=== PATIENT | female | born 1955 | race Caucasian/White ===

== ENCOUNTER 2021-07-16 12:35 | Outpatient (REF) | payer MEDICARE, MEDICAID, SELFPAY | END 2021-07-16 12:36 | disposition home or self-care (01) | LOC: HO.LAB 12:35 | PROVIDERS: Visit Provider Internal Medicine | DX: Z20.822 Contact with and (suspected) exposure to COVID-19 (principal) | CPT/HCPCS: C9803; U0003; U0005 ==

== ENCOUNTER 2021-12-29 09:29 | Emergency (ER) | payer MEDICARE, MEDICAID, OTHER, SELFPAY ==
[2021-12-29 09:50] VITALS: BP 172/96; PULSE 90; RESP 18; TEMP 36.4; O2SAT 98; BMI 33.2
--- NOTE | 2021-12-29 10:35 | ED.GENADULT ---
HPI - General Adult General Chief complaint: General Medical Stated complaint: medication refill Time Seen by Provider: 12/29/21 10:35 Source: patient and other (Best friend Sonja) Mode of arrival: ambulatory Limitations: no limitations History of Present Illness HPI narrative: 66-year-old female with past medical history of depression is here today seeking refill on her citalopram. Patient reports that she has been on it for over 8 years. Patient has been depressed for very long time. Patient reports that while she was on that medication she did not have any side effects. Patient reports that she has been doing well denies any suicidal ideation while taking this medication. Patient lost her mother 8 years ago, her 7 years ago when her son 4 years ago. Patient has not seen a PCP for 2 years. Tried calling her primary care provider and was unable to get in. Patient has ran out of this medication, her last dose was November 08 of this year. Patient denies any SI, HI. Patient reports that she has never seen therapist or psychiatrist in the past. Patient does not have any psychiatric disorders or was never diagnosed with any psychiatric disorders. Patient is here with her best friend Erica who is attesting that patient has not been suicidal before nor she is suicidal now. Patient is friend is reporting that since she stopped taking the medications she looks little bit more depressed and cries frequently. Patient states that she is unable to get over the loss of her son. However she does report that she has a very good support system in her best friend and some other people in community. Onset (ago): day(s) Related Data Previous Rx's Medication Instructions Recorded citalopram 10 mg tablet 10 mg PO DAILY #30 tab 12/29/21 Allergies Allergy/AdvReac Type Severity Reaction Status Date / Time No Known Allergies Allergy Unverified 07/25/20 15:18 [No Known Allergies*] Review of Systems Review of Systems: Constitutional : No Weight loss, No Fever, No Chills, No Night Sweats, No Fatigue, No Malaise ENT/Mouth : No Hearing loss, No Ear Pain, No Nasal Congestion, No Sinus Pain, No Hoarseness, No sore throat, No Rhinorrhea, No Swallowing Difficulty Eyes: No Eye Pain, No Swelling, No Redness, No Foreign Body, No Discharge, No Vision Changes Cardiovascular : No Chest Pain, No SOB, No Dyspnea on Exertion, No Orthopnea, No Edema, No Palpitations Respiratory : No Cough, No Sputum, No Wheezing, No Smoke Exposure, No Dyspnea Gastrointestinal : No Nausea, No Vomiting, No Diarrhea, No Constipation, No abdominal Pain, No Hematochezia, No Melena Genitourinary : no irregular bleeding, No Dysuria, No Urinary Frequency, No Hematuria, No Urinary Incontinence, No Urgency, No Flank Pain, No Urinary Flow Changes, No Hesitancy Musculoskeletal : No joint pain, No Myalgias, No Joint Swelling Skin : No Skin Lesions, No rash Neuro : No Weakness, No Numbness, No Paresthesias, No Loss of Consciousness, No Dizziness, No Headache Psych : No Anxiety/Panic, Depression, No SI/HI/AH/VH, No Social Issues, Yes all other systems are reviewed and are negative [facility] Past Medical History Medical History (Updated 12/30/21 @ 00:00 by Background Daemon) Depressed Physical Exam ED Vital Signs: Vital Signs - 24 hr 12/29/21 09:50 Temperature 97.6 F Pulse Rate 90 Respiratory Rate 18 Blood Pressure 172/96 H Pulse Oximetry 98 BMI result Body Mass Index 33.2 Const General: cooperative, healthy appearing, no acute distress, alert, awake and Physically active [facility] Head: Yes normal to inspection, Yes normocephalic and Yes atraumatic Face and sinus: Yes normal facial exam Resp Effort & Inspection: normal respiratory effort and able to speak in complete sentences Auscultation: clear to auscultation bilaterally Cardio Rate: regular rate Rhythm: regular rhythm Heart sounds: S1 normal heart sound present and S2 normal heart sound present GI Inspection: Yes normal to inspection and No distended Palpation (GI): Soft to palpation, nontender and no guarding Skin General skin exam: no rashes or lesions noted, elasticity normal and turgor normal Extrem General: Yes normal to inspection, Yes full ROM and Yes capillary refill normal Psych Other: Patient is here with her best friend Yadi, patient denies SI or HI. Appearance: grossly normal Mental Status: mental status grossly normal Speech and movement: Normal speech and movement present Affect: Sad affect present Attitude: cooperative Thought process: Normal thought process present Thought content: Normal thought content present Insight: Good insight present (Psych) Judgement: Good judgement present (Psych) Course Course Course Narrative: 66-year-old female with past medical history of depression is here today seeking refill on her citalopram. Patient reports that she has been on it for over 8 years. Patient has been depressed for very long time. Patient reports that while she was on that medication she did not have any side effects. Patient reports that she has been doing well denies any suicidal ideation while taking this medication. Patient lost her mother 8 years ago, her 7 years ago when her son 4 years ago. Patient has not seen a PCP for 2 years. Tried calling her primary care provider and was unable to get in. Patient has ran out of this medication, her last dose was November 08 of this year. Patient denies any SI, HI. Patient reports that she has never seen therapist or psychiatrist in the past. Patient does not have any psychiatric disorders or was never diagnosed with any psychiatric disorders. Patient is here with her best friend Erica who is also attesting that the patient has not been suicidal before and she is not suicidal now. She reports that patient has been feeling good prior are report from frequently since she dropped taking citalopram. Patient states that she is unable to get over the loss of her son. Discussed with her the importance of finding a PCP as well as speaking to a therapist. Patient does have a great support in her best friend and some other friends in the community, however stressed importance that she needs to speak to a professional. Again patient denies being suicidal. Patient was encouraged to call us if she will have any feelings of SI when she begins to take this medication. Patient was urged to call to speak to a counselor. Patient wants to find a new provider as well. Phone number to [facility] given to patient as well as to [facility]. Both patient and her friend verbalized understanding of given instructions and are agreeable to this plan. Discharge Plan Discharge Clinical Impression: Depressed Patient Disposition: Home, Self-Care Instructions: Depression (ED) Additional Instructions: You were seen here today because you ran out of medication. Citalopram is medication that needs to be followed by medical provider or therapist. You will be given 1 month supply, however please call [facility] for an appointment as well as [facility] to see therapist. Please seek medical care if your depression will feel worse or if he will have any suicidal thoughts. Prescriptions: New citalopram 10 mg tablet 10 mg PO DAILY Qty: 30 0RF Interventions: ED Discharge Assessment Last Done: 12/29/21 11:04 Discharge Date/Time: 12/29/21 11:06
== END 2021-12-29 11:06 | disposition home or self-care (01) ==
PROVIDERS: Emergency Provider Emergency Medicine
DX: F33.1 Major depressive disorder, recurrent, moderate (principal); Z76.0 Encounter for issue of repeat prescription; Z79.899 Other long term (current) drug therapy
CPT/HCPCS: 99282; 99283

== ENCOUNTER 2022-02-19 10:46 | Outpatient (REF) | payer MEDICARE, OTHER, SELFPAY ==
--- NOTE | ~2022-02-19 | MM_ITS ---
EXAMINATION: MM SCREENING DIGITAL BREAST TOMOSYNTHESIS, BILATERAL CLINICAL INFORMATION: Screening. Asymptomatic. The lifetime risk of breast cancer based on the Tyrer-Cuzick Model is 2%. COMPARISON: Mammography: 01/03/2018, 12/30/2017; outside mammography 03/23/2013 ([place], [place]). TECHNIQUE: Digital breast tomosynthesis is performed in both the craniocaudal and mediolateral oblique views along with computer-aided detection (CAD). Synthesized 2D images are generated from the tomosynthesis. FINDINGS: There are scattered areas of fibroglandular density (ACR BI-RADS breast composition Category b). There are no significant masses, abnormal calcifications, or other abnormalities. The axilla and skin contours are unremarkable. No significant changes from prior studies. MM/MM tomosynthesis screening BI IMPRESSION: No mammographic evidence of malignancy. ASSESSMENT: BI-RADS 1: Negative RECOMMENDATION: Routine annual mammography screening. This patient's information was entered into a reminder system with a target due date for their next mammogram.
== END 2022-02-19 10:47 | disposition home or self-care (01) ==
LOC: HO.MAMMO 10:46
PROVIDERS: Visit Provider Nurse Practitioner
DX: Z12.31 Encounter for screening mammogram for malignant neoplasm of breast (principal)
CPT/HCPCS: 77063; 77067

== ENCOUNTER 2022-03-12 09:26 | Outpatient (REF) | payer MEDICARE, OTHER, SELFPAY ==
--- NOTE | ~2022-03-12 | MM_ITS ---
EXAMINATION: BONE DENSITOMETRY CLINICAL INDICATION: Menopausal. COMPARISON: None (current study represents initial baseline exam). TECHNIQUE: Using a [employer] DXA System (software version: 13.1) manufactured by [employer], dual-energy x-ray absorptiometry was performed of the lumbar spine and left hip. The images are of good technical quality. Summary results are attached. FINDINGS: AP SPINE L1-L4: BMD 0.835 g/cm2, Z-score -0.5, T-score -2.9, osteoporosis. LEFT FEMUR, NECK: BMD 0.533 g/cm2, Z-score -1.5, T-score -3.6, osteoporosis. LEFT FEMUR, TOTAL: BMD 0.477 g/cm2, Z-score -2.3, T-score -4.2, osteoporosis. IDENTIFIED RISK FACTORS: Early menopause, secondary osteoporosis, low body weight, history of fracture (adult). HISTORY OF FRACTURE: Femur/hip. Elbow. MEDICATIONS: Calcium supplements or multivitamin, vitamin D. MM/XR DEXA axial skeleton IMPRESSION: 1. DIAGNOSIS: Osteoporosis based on the lowest T-score value of -4.2 in the total femur applying World Health Organization criteria. 2. 10-YEAR FRACTURE RISK PREDICTION, FRAX: According to the guidelines, FRAX calculation should only be performed on patients in the osteopenia bone density category. Therefore, FRAX was not performed on this patient. 3. Treatment Recommendations: NOF guidelines recommend consideration for treatment in postmenopausal women and men age 50 and older presenting with the following: -A hip or vertebral (clinical or morphometric) fracture. -T-score less than or equal to -2.5 at the femoral neck or spine after appropriate evaluation to exclude secondary causes. -Low bone mass at the hip or spine and a 10-year fracture probability by FRAX of greater than or equal to 3% for hip fracture or greater than or equal to 20% for major osteoporotic fracture based on the [place] adapted WHO algorithm. 4. Other Recommendations: All treatment decisions require clinical judgment and consideration of individual patient factors, including patient preferences, comorbidities, previous drug use, risk factors not captured in the FRAX model (e.g. frailty, falls, vitamin D deficiency, increased bone turnover, interval significant decline in bone density) and possible under or overestimation of fracture risk by FRAX. Additional medical evaluation for secondary cause of low bone mineral density may be appropriate. FUTURE SCAN RECOMMENDATION: People with diagnosed cases of osteoporosis or at high risk for fracture should have regular bone mineral density tests. For patients eligible for Medicare, routine testing is allowed once every 2 years. The testing frequency can be increased to one year for patients who have rapidly progressing disease, those who are receiving or discontinuing medical therapy to restore bone mass, or have additional risk factors.
== END 2022-03-12 09:27 | disposition home or self-care (01) ==
LOC: HO.MAMMO 09:26
PROVIDERS: Visit Provider Nurse Practitioner
DX: Z13.820 Encounter for screening for osteoporosis (principal); Z78.0 Asymptomatic menopausal state; M81.0 Age-related osteoporosis without current pathological fracture
CPT/HCPCS: 77080

== ENCOUNTER 2022-08-28 11:51 | Day surgery (SDC) | payer MEDICARE, MEDICAID, SELFPAY ==
[2022-08-28 12:01] VITALS: BMI 17.6
--- NOTE | 2022-08-28 12:19 | HO.ANESPROP2 ---
[facility] Past Medical History Medical History Depressed HTN (hypertension) Hyperlipidemia Osteoporosis Surgical History Surgical History History of eye surgery History of hip surgery History of surgery on arm History of Problems with Anesthesia: No Social History Social History Patient Tobacco Use Status: Never used Tobacco Use of substances other than those prescribed or required for medical reasons: Yes Substance Use Frequency: Weekly Advance Directives: No Advance Directives Information Provided: Yes Meds Allergies Allergy/AdvReac Type Severity Reaction Status Date / Time No Known Allergies Allergy Unverified 07/25/20 15:18 [No Known Allergies*] Active Medications: Current Medications Lactated Ringer's (Lr) 1,000 mls @ 100 mls/hr IVCONT .Q10H SUSAN Sodium Biphosphate/Sodium Phosphate (Sodium Phosphate,Woodward-Dibasic 133 Ml Enema) 133 ml ID ONCE PRN PRN Reason: Poor Colonoscopy Prep Results Home Medications Medication Instructions Recorded Confirmed Last Taken Type alendronate 70 mg tablet 1 tab PO QWEEK 08/27/22 08/27/22 Unknown History amlodipine 10 mg tablet 1 tab PO DAILY 08/27/22 08/27/22 Unknown History calcium carbonate 600 mg-vitamin 1 tab PO BID 08/27/22 08/27/22 Unknown History D3 10 mcg (400 unit) tablet mirtazapine 30 mg tablet 1 tab PO BEDTIME 08/27/22 08/27/22 Unknown History Exam Exam Date and Time: August 28, 2022 1219 Height,Weight and Vital Signs: Height 5 ft 3 in Weight 45.359 kg Airway Mallampati Class: II (Edentulous) TM Dist: >3cm Neck ROM: Full Denture: Upper Loose/Missing/Broken Teeth: Yes, Upper and Lower Heart: RRR Lungs: CTA Assessment and Plan Assessment Anesthesia Assessment: Anesthesia Plan Discussed and Chart Reviewed Final Anesthetic Review History of Problems with Anesthesia: No NPO: Yes ASA Class: II Final Preanesthetic Review: Meds/Allgs Chart Reviewed, Consent Obtained/Reviewed and Anes Risks/Benef Reviewed Patient Risk: Low Procedure Risk: Low Anesthetic Plan Anesthetic Plan: MAC: Disposition: Standard PACU
[2022-08-28 12:21] VITALS: BP 131/77; PULSE 90; RESP 16; TEMP 36.6; O2SAT 98
[2022-08-28 14:12] VITALS: BP 103/63; PULSE 77; RESP 18; TEMP 36.4; O2SAT 97
--- NOTE | 2022-08-28 14:17 | P.BOP_ITS ---
Brief Operative Note Date of Service: 08/28/22 Pre-op diagnosis: Heme + stool Post-op diagnosis: other (Polyps) Procedure: Colonoscopy to the cecum with bx/removal of cecal polyp, hot snare polypectomy x 3, and marking with ink at polypectomy site at 20cm Surgeon: Betito Pace Anesthesia: MAC Was an [employer] used for this Procedure?: No Estimated blood loss (mL): 2.0 Pathology: other (A. Polyp at 50cm B. Cecal polyp C. Polyp at 25cm D. Polyp at 20cm) Condition: stable Disposition: PACU
[2022-08-28 14:27] VITALS: BP 105/68; PULSE 70; RESP 18; TEMP 36.4; O2SAT 99
--- NOTE | 2022-08-29 02:10 | OP_ITS ---
SURGEON: Betito Pace MD INDICATIONS: The patient presents for evaluation of heme-positive stool. Full consent obtained from her for this, including risks of bleeding and perforation. PREOPERATIVE DIAGNOSIS: Heme-positive stool. POSTOPERATIVE DIAGNOSIS: Heme-positive stool, colon polyps, internal hemorrhoids, and diverticulosis. PROCEDURE PERFORMED: Colonoscopy to the cecum with hot snare polypectomy x3, and biopsy and removal of cecal polyp. ESTIMATED BLOOD LOSS: COMPLICATIONS: ANESTHESIA: Monitored anesthesia care. ASSISTANTS: SPECIMENS: DESCRIPTION OF PROCEDURE: The patient was placed in the left lateral decubitus position. The digital rectal exam revealed no abnormalities. The Olympus video pediatric colonoscope was entered into the rectum and advanced easily to the cecum. Once in the cecum, I did identify normal-appearing cecal pouch other than an approximately 3 mm polyp, which was biopsied and completely removed with cold biopsy forceps. The remainder of the cecum, including the appendiceal orifice, appeared normal. The ileocecal valve appeared normal. There was transillumination of light deep in the right lower quadrant. The scope was slowly withdrawn assessing all mucosal surfaces carefully. Preparation was excellent. At 50 cm was an approximately 8 mm polyp, which was removed by hot snare polypectomy and recovered by suction. The polypectomy site appeared clean, without any sign of residual polyp nor bleeding. At 25 cm was an approximately 10 mm polyp, which was removed by hot snare polypectomy and recovered by suction. The polypectomy site appeared clean, without any sign of residual polyp nor bleeding. At 20 cm was an approximately 1.5 cm polyp on a fairly long stalk. The polyp itself was quite erythematous, friable, and had some small ulcerations on it. The polyp was removed with a hot snare at the base of the stalk and then recovered by retrieving it on the tip of the scope. The scope was readvanced back into the rectum and to the polypectomy site, which appeared clean, without any sign of residual polyp nor bleeding. Given its gross appearance, I did place a submucosal ink laurence just proximal and just distal to it. I did not visualize any other polyps, colitis, or angiodysplasia. There was a mild amount of sigmoid diverticulosis. In the rectum, scope was retroflexed visualizing internal hemorrhoids, but no other pathology. The rectal mucosa appeared normal. The scope was straightened and withdrawn from the patient. She tolerated the procedure well and was returned to recovery area in stable condition. IMPRESSION: 1. Colon polyps. 2. Diverticulosis. 3. Internal hemorrhoids. PLAN: The results of the pathology will be checked. At this point, I would plan to have a repeat colonoscopy in 3 years given today's findings, although that could change depending upon the pathology of the larger polyp at 20 cm. She was advised not to use any aspirin and NSAIDs for 1 week. MD ELVIA Barnard/ALDO / [id number]
== END 2022-08-28 15:08 | disposition home or self-care (01) ==
PROVIDERS: PCP Nurse Practitioner; Visit Provider Internal Medicine
PROC: 0DJD8ZZ Inspection of Lower Intestinal Tract, Via Natural or Artificial Opening Endoscopic (ICD-10-PCS; CPT 45378; principal; 2022-08-28 13:20)
DX: R19.5 Other fecal abnormalities (principal); D12.0 Benign neoplasm of cecum; D12.5 Benign neoplasm of sigmoid colon; K57.30 Diverticulosis of large intestine without perforation or abscess without bleeding; K64.8 Other hemorrhoids; F32.A Depression, unspecified; I10 Essential (primary) hypertension; E78.5 Hyperlipidemia, unspecified; M81.0 Age-related osteoporosis without current pathological fracture; Z79.899 Other long term (current) drug therapy
CPT/HCPCS: 45385; 45380; 45381; 88305

== ENCOUNTER 2023-03-29 09:13 | Outpatient (REF) | payer OTHER, SELFPAY ==
--- NOTE | ~2023-03-29 | MM_ITS ---
EXAMINATION: MM SCREENING DIGITAL BREAST TOMOSYNTHESIS, BILATERAL CLINICAL INFORMATION: Screening. Asymptomatic. The lifetime risk of breast cancer based on the Tyrer-Cuzick Model is 3%. COMPARISON: Mammography: 01/03/2018, 12/30/2017, 03/23/2013; left breast ultrasound 01/03/2018. TECHNIQUE: Digital breast tomosynthesis is performed in both the craniocaudal and mediolateral oblique views along with computer-aided detection (CAD). Synthesized 2D images are generated from the tomosynthesis. Additional right MLO view is provided. FINDINGS: There are scattered areas of fibroglandular density (ACR BI-RADS breast composition Category b). There are no significant masses, abnormal calcifications, or other abnormalities. Parenchymal pattern is similar to prior studies. There is no developing density or architectural abnormality. The axilla and skin contours are unremarkable. No significant changes. MM/MM tomosynthesis screening BI IMPRESSION: No mammographic evidence of malignancy. ASSESSMENT: BI-RADS 1: Negative RECOMMENDATION: Routine annual mammography screening. This patient's information was entered into a reminder system with a target due date for their next mammogram.
== END 2023-03-29 09:14 | disposition home or self-care (01) ==
LOC: HO.MAMMO 09:13
PROVIDERS: PCP General Practice; Visit Provider General Practice
DX: Z12.31 Encounter for screening mammogram for malignant neoplasm of breast (principal)
CPT/HCPCS: 77063; 77067

== ENCOUNTER 2023-08-09 11:46 | Emergency (ER) | payer OTHER, SELFPAY ==
[2023-08-09 13:15] VITALS: BP 146/85; PULSE 106; RESP 16; TEMP 36.2; O2SAT 96; BMI 17.3
--- NOTE | 2023-08-09 13:15 | ED.GENADULT ---
HPI - General Adult General Chief complaint: Abdominal Pain Stated complaint: UTI Time Seen by Provider: 08/09/23 20:31 Source: patient and family Mode of arrival: ambulatory Limitations: no limitations History of Present Illness HPI narrative: Patient comes to the emergency room accompanied by her sister. Patient complaining of suprapubic pain, burning sensation with urination, frequency. No back pain, no flank pain. No fever or chills. Symptoms started 3 days ago. Related Data Home Medications Medication Instructions Recorded Confirmed alendronate 70 mg tablet 1 tab PO QWEEK 08/27/22 08/27/22 amlodipine 10 mg tablet 1 tab PO DAILY 08/27/22 08/27/22 calcium carbonate 600 mg-vitamin 1 tab PO BID 08/27/22 08/27/22 D3 10 mcg (400 unit) tablet mirtazapine 30 mg tablet 1 tab PO BEDTIME 08/27/22 08/27/22 Previous Rx's Medication Instructions Recorded citalopram 10 mg tablet 10 mg PO DAILY #30 tabs 12/29/21 cefuroxime axetil 500 mg tablet 500 mg PO BID #14 tabs 08/09/23 phenazopyridine 100 mg tablet 100 mg PO TID #6 tabs 08/09/23 Allergies Allergy/AdvReac Type Severity Reaction Status Date / Time No Known Allergies Allergy Unverified 07/25/20 15:18 [No Known Allergies*] Review of Systems Review of Systems: Constitutional : No Weight loss, No Fever, No Chills, No Night Sweats, No Fatigue, No Malaise ENT/Mouth : No Hearing loss, No Ear Pain, No Nasal Congestion, No Sinus Pain, No Hoarseness, No sore throat, No Rhinorrhea, No Swallowing Difficulty Eyes: No Eye Pain, No Swelling, No Redness, No Foreign Body, No Discharge, No Vision Changes Cardiovascular : No Chest Pain, No SOB, No Dyspnea on Exertion, No Orthopnea, No Edema, No Palpitations Respiratory : No Cough, No Sputum, No Wheezing, No Smoke Exposure, No Dyspnea Gastrointestinal : No Nausea, No Vomiting, No Diarrhea, No Constipation, No abdominal Pain, No Hematochezia, No Melena Genitourinary : no irregular bleeding, No Dysuria, No Urinary Frequency, No Hematuria, No Urinary Incontinence, No Urgency, No Flank Pain, No Urinary Flow Changes, No Hesitancy Musculoskeletal : No joint pain, No Myalgias, No Joint Swelling Skin : No Skin Lesions, No rash Neuro : No Weakness, No Numbness, No Paresthesias, No Loss of Consciousness, No Dizziness, No Headache Psych : No Anxiety/Panic, No Depression, No SI/HI/AH/VH, No Social Issues, Heme/Lymph: No Bruising, No Bleeding,No Lymphadenopathy Endocrine : No Polyuria, No Polydipsia, No Temperature Intolerance [facility] Past Medical History Medical History Depressed HTN (hypertension) Hyperlipidemia Osteoporosis Surgical History History of eye surgery History of hip surgery History of surgery on arm Social History Social History Patient Tobacco Use Status: Never used Tobacco Smoked in Last 30 Days: No Use of substances other than those prescribed or required for medical reasons: No Advance Directives: No Advance Directives Information Provided: No Physical Exam ED Vital Signs: Vital Signs - 24 hr 08/09/23 13:15 08/09/23 19:20 Temperature 97.1 F 98.1 F Pulse Rate 106 H 98 Respiratory Rate 16 18 Blood Pressure 146/85 H 132/77 Pulse Oximetry 96 97 Oxygen Delivery Method Room Air Room Air BMI result Body Mass Index 17.3 Const Other: Appearance: Alert. Oriented X3. No acute distress. Eyes: Pupils equal, round and reactive to light. ENT: Pharynx normal. Neck: Normal inspection. Neck supple. No lymph nodes noted. No crepitus CVS: Normal heart rate and rhythm. Pulses normal. Normal S1 and S2 Respiratory: No respiratory distress. Breath sounds normal. No Wheezing. No rales Abdomen: Soft, suprapubic discomfort on deep palpation. No rigidity. No distention. Skin: Skin warm and dry. Normal skin color. Normal skin turgor. Extremities: No lower extremity edema. No Lacerations. No Rash Neuro: Oriented X 3. No motor deficit. No sensory deficit. Moving all extremities. No slurred speech. CN 2 through 12 grossly intact Psych: calm, cooperative, normal affect Course Course Course Narrative: This is an RME: Additional HPI, ROS, PE not included below will be deferred to primary provider. This is a [id number] presenting to the emergency department, accompanied by her sister, with complaints of low back pain, dysuria, decreased energy, foul smelling urine and hematuria x 2 days. Pt states that she has had low back pain and dysuria x 3 days. Reports that she urinated in her bed overnight. Admitting to having a fever last night. Plan: Labs, UA ordered. Medications Administered Discontinued Medications Generic Name Dose Route Start Last Admin Trade Name Rafaelq PRN Reason Stop Dose Admin Ceftriaxone Sodium 1 gm/ 0 gm 08/09/23 20:40 08/09/23 20:57 Lidocaine HCl 2.1 ml IM 08/09/23 20:41 1 kit ONCE ONE Administration Phenazopyridine HCl 100 mg 08/09/23 20:40 08/09/23 20:57 Phenazopyridine Hcl 100 Mg Tablet PO 08/09/23 20:41 100 mg ONCE ONE Administration Medical Decision Making Medical Decision Making [facility] Narrative: -my interpretation of labs: Patient's white blood cell count elevated likely secondary to UTI, UA positive for UTI. Patient's blood pressure stable, no fever, no flank pain, sepsis and pyelonephritis are not suspected. -given the 1st dose of IM ceftriaxone in the emergency room, patient will continue p.o. cefuroxime and phenazopyridine at home. Patient agrees with plan Differential Diagnosis Differential Diagnoses: The differential diagnosis associated with the presentation includes (UTI, pyelonephritis, renal colic) Lab Data [facility] Lab Attestation statement: I reviewed the patient's lab results. 08/09/23 14:00 08/09/23 14:00 Labs: Lab Results 08/09/23 Range/Units 14:00 WBC 14.3 H (4.8-10.8) X10*3/uL RBC 4.45 (4.20-5.50) X10*6/uL Hgb 14.9 (12.0-16.0) g/dl Hct 42.9 (37.0-47.0) % MCV 96.4 (80.0-98.0) fL MCH 33.5 H (27.0-33.0) pg MCHC 34.7 (31.0-35.0) g/dl RDW 12.0 (11.0-16.0) % Plt Count 298 (160-400) X10*3/uL MPV 9.3 L (9.4-12.3) fL Immature Gran % (Auto) 0.4 (0.0-0.4) % Neut % (Auto) 75.9 H (45-73) % Lymph % (Auto) 14.4 L (20-40) % [place] % (Auto) 8.8 (2-11) % Eos % (Auto) 0.1 (0-4) % Baso % (Auto) 0.4 (0-2) % Lymph # (Auto) 2.1 (1.2-4.9) X10*3/uL [place] # (Auto) 1.3 H (0.1-1.2) X10*3/uL Eos # (Auto) 0.0 (0.0-0.4) X10*3/uL Baso # (Auto) 0.1 (0.0-0.2) X10*3/uL Abs Immat Gran (auto) 0.06 H (0.00-0.03) X10*3/uL Absolute Neuts (auto) 10.9 H (2.0-8.3) x10*3/uL Absolute Nucleated RBC 0.000 (0.0-0.012) X10*3/uL Nucleated RBC % (auto) 0.0 (0.0-0.2) /100WBC Sodium 138 (135-145) mmol/L Potassium 3.8 (3.3-5.1) mmol/L Chloride 105 (96-108) mmol/L Carbon Dioxide 21 L (22-29) mmol/L Anion Gap 16 (12-20) BUN 16 (9-16) mg/dL Creatinine 0.83 (0.5-1.4) mg/dL Estim Creat Clear Calc 43.9 Estimated GFR > 60 Random Glucose 101 (60-115) mg/dL Calcium 10.1 (8.4-10.2) mg/dL Total Bilirubin 0.6 (0.0-1.0) mg/dL Direct Bilirubin 0.3 (0.0-0.5) mg/dL AST 17 (5-31) U/L ALT 9 (0-31) U/L Alkaline Phosphatase 105 (39-117) U/L Total Protein 8.0 (6.5-8.0) g/dL Albumin 4.2 (3.5-5.0) g/dL Urine Color Yellow Urine Appearance Turbid Urine pH 6.0 (5.0-9.0) Ur Specific [place] 1.015 (1.005-1.025) Urine Protein >=1000 (4+) H (Neg-Trace) mg/dL Urine Glucose (UA) Negative (Negative) mg/dL Urine Ketones 80 (Negative) mg/dL Urine Blood Large (3+) H (Negative) Urine Nitrite Positive H (Negative) Ur Leukocyte Esterase Large (3+) H (Negative) Urine RBC >20 H (0-2) /HPF Urine WBC >50 H (0-5) /HPF Ur Squamous Epith Cells 0-2 (0-2) /HPF Urine Bacteria 2+ (None Seen) Hyaline Casts 0-2 (0-2) /LPF Discharge Plan Discharge Clinical Impression: Acute UTI Patient Disposition: Home, Self-Care Instructions: Urinary Tract Infection in Women (ED) Additional Instructions: Please follow-up with your primary care physician tomorrow. If you have any worsening or new symptoms, please return to the emergency room or call 911 Prescriptions: New cefuroxime axetil 500 mg tablet 500 mg PO BID Qty: 14 0RF phenazopyridine 100 mg tablet 100 mg PO TID Qty: 6 0RF No Action citalopram 10 mg tablet 10 mg PO DAILY Qty: 30 0RF alendronate 70 mg tablet 1 tab PO QWEEK amlodipine 10 mg tablet 1 tab PO DAILY mirtazapine 30 mg tablet 1 tab PO BEDTIME calcium carbonate-vitamin D3 600 mg-10 mcg (400 unit) tablet 1 tab PO BID
[2023-08-09 14:04] LABS: MANUAL DIFF FLAG NO
[2023-08-09 14:07] LABS: Appearance Urine Turbid; Color Urine Yellow; Glucose Urine UA Negative (Negative); Leukocyte Esterase Urine Large (3+) (Negative); Nitrite Urine Positive (Negative); Specific Gravity - Urine 1.015 (1.005-1.025); UMIC TRIGGER UACC YES; Urine Blood Large (3+) (Negative); Urine Ketones 80 mg/dL (Negative); Urine Protein >=1000 (4+) mg/dL (Neg-Trace)
[2023-08-09 14:09] LABS: Basophils Absolute Auto 0.1 X10*3/uL (0.0-0.2); Basophils Percent Auto 0.4 % (0-2); Eosinophils Percent Auto 0.1 % (0-4); Hematocrit 42.9 % (37.0-47.0); Hemoglobin 14.9 g/dl (12.0-16.0); Imm Gran Abs Auto 0.06 X10*3/uL (0.00-0.03); Imm Gran Pct Auto 0.4 % (0.0-0.4); Lymphocytes Absolute Auto 2.1 X10*3/uL (1.2-4.9); Lymphocytes Percent Auto 14.4 % (20-40); Mean Corpuscular HGB Conc 34.7 g/dl (31.0-35.0); Mean Corpuscular Hemoglobin 33.5 pg (27.0-33.0); Mean Corpuscular Volume 96.4 fL (80.0-98.0); Mean Platelet Volume 9.3 fL (9.4-12.3); Monocytes Absolute Auto 1.3 X10*3/uL (0.1-1.2); Monocytes Percent Auto 8.8 % (2-11); Neutrophils Absolute Auto 10.9 x10*3/uL (2.0-8.3); Neutrophils Percent Auto 75.9 % (45-73); Platelet Count 298 X10*3/uL (160-400); Red Blood Count 4.45 X10*6/uL (4.20-5.50); White Blood Count 14.3 X10*3/uL (4.8-10.8)
[2023-08-09 14:15] LABS: Bacteria Urine 2+ (None Seen); Hyaline Casts Urine 0-2 /LPF (0-2); RBC Urine >20 /HPF (0-2); Squamous Epithelial Cell Urine 0-2 /HPF (0-2); UACC Culture Trigger YES; WBC Urine >50 /HPF (0-5)
[2023-08-09 14:22] LABS: Alanine Aminotransferase 9 U/L (0-31); Albumin Level 4.2 g/dL (3.5-5.0); Alkaline Phosphatase 105 U/L (39-117); Anion Gap 16 (12-20); Aspartate Amino Transferase 17 U/L (5-31); Bilirubin Direct 0.3 mg/dL (0.0-0.5); Blood Urea Nitrogen 16 mg/dL (9-16); Calcium 10.1 mg/dL (8.4-10.2); Carbon Dioxide 21 mmol/L (22-29); Chloride 105 mmol/L (96-108); Creatinine Clr Calc Pharmacy 43.9; Estimated Glomerular Filt Rate > 60; Glucose Random 101 mg/dL (60-115); Potassium 3.8 mmol/L (3.3-5.1); Sodium 138 mmol/L (135-145)
[2023-08-09 14:41] LABS: Bilirubin Total 0.6 mg/dL (0.0-1.0)
[2023-08-09 19:20] VITALS: BP 132/77; PULSE 98; RESP 18; TEMP 36.7; O2SAT 97
[2023-08-09] MEDS: cefTRIAXone sodium 1 GM, Lidocaine HCl 1 % MPF 2.1 ML IM (20:57)
[2023-08-09] MEDS: Phenazopyridine HCL 100 MG TABLET PO (20:57)
--- NOTE | 2023-08-09 21:00 | PC.NURSE ---
pt medicated per MAR.
== END 2023-08-09 21:22 | disposition home or self-care (01) ==
PROVIDERS: Physician Assistant Medical; Emergency Provider Emergency Medicine; PCP General Practice
DX: N39.0 Urinary tract infection, site not specified (principal); Z79.899 Other long term (current) drug therapy
CPT/HCPCS: 36415; 80048; 80076; 81001; 85025; 87086; 87088; 87186; 96372; 99284; J0696

== ENCOUNTER 2025-03-28 15:33 | Outpatient (REF) | payer OTHER, SELFPAY ==
--- OUTSIDE RECORDS SUMMARY | 2025-03-28 15:37 | XMS_ITS | Encounter Summary ---
Author Organization [employer] Address [address] [facility] [place] [address] Care Team Providers Care Ladderman Name Role Phone Safia Horner MD Primary Care Provider [phone] Encounter Details Date Type Department Care Team (Late st Contact Info) Description 08/28/2024 Telephone [facility] MEDICINE [address] [place], [place] [phone] Safia Horner MD [address] [place], [place] [phone] Social History Tobacco Use Types Packs/Day Years Used Date Smoking Tobacco: Never Smokeless Tobacco: Never Alcohol Use Standard Drinks/Week Comments Never 0 (1 standard drink = 0.6 oz pur e alcohol) Depression Answer Date Recorded Patient Health Questionnaire-9 Score 1 06/21/2023 Housing Stability Answer Date Recorded What is your housing situation today? I have camilla sidney 08/25/[address] you li ve. Do you have problems with any of the following? None of the above 08/25/2023 Food Insecurity Answer Date Recorded Within the past 12 months, y ou worried that your food would run out before you got money to buy more: Never True 08/25/2023 Within the past 12 months,th e food you bought just didn't last and you didn't have enough money to get more: Never True Transportation Answer Date Recorded In the past 12 months, has l ack of transportation kept you from medical appts, meetings, work or from getting things needed for daily living? No 08/25/2023 Utilities Answer Date Recorded In the past 12 months, has t he electric, gas, oil or water company threatened to shut off services in your home? No 08/25/2023 Depression Answer Date Recorded Patient Health Questionnaire-2 Score 0 06/21/2023 Comments Unknown Sex and Gender Information Value Date Recorded Sex Assigned at Female 09/07/2022 10:32 AM EDT Legal Sex Female 10:32 AM EDT Gender Identity Female 09/07/2022 10:32 AM EDT Sexual Orientation Straight 09/07/2022 10 :32 AM EDT documented as of this encounter Plan of Treatment Upcoming Encounters Date Type Department Care Team (Late st Contact Info) Description 05/02/2025 10:30 AM EDT Clinical Support [facility] MEDICINE [address] [place] [address] documented as of this encounter Visit Diagnoses Not on filedocumented in this encounter Additional Health Concerns Assessment Noted Time PHQ-9 Depression Total Score: 1 06/21/20 23 10:59 AM EDT documented as of this encounter Care Teams Ladderman Relationship Specialty Start Date End Date Safia Horner MD [address] [place] [address] PCP - General Family Medicine 06/30/22 documented as of this encounter
--- OUTSIDE RECORDS SUMMARY | 2025-03-28 15:37 | XMS_ITS | Patient Health Record ---
Author Organization [facility] Address [address] [place] [id number] Care Team Providers Care Mandrel Puller Name Role Phone Nate Virgen Jessica Primary Care Provider Betito Gonzalez Unavailable [phone] Allergies No Known Allergies Reason For Referral No Information Medications Medication SIG (Take, Route, Frequency, Duration) Notes Start Date End Date Status Alendronate Sodium 70 MG 1 tablet 30 min utes before the first food, beverage or medicine of the day with plain water Orally for 30 day(s) Active amLODIPine Besylate 10 MG TAKE 1 TABLET BY MOUTH EVERY DAY Oral for 90 Active Atorvastatin Calcium 10 MG 1 tablet Oral ly Once a day for 30 day(s) Active Calcium Carbonate-Vitamin D3 600-400 MG-UNIT TAKE 1 TABLET BY MOUTH TWICE DAILY Oral for 90 Active Vitamin D Active Mirtazapine 30 MG 1 tablet at bedtime Orally Once a day for 30 day(s) Active Immunizations Vaccine Route Administration Date Status Comme nts Influenza Unknown 07/17/2022 Refused Social History Tobacco Use: Social History Observation Description Date Details (start date - stop date) Former Smoker NA - NA Tobacco Use/Smoking Question Answer Notes Patient is a former smoker How long has it been since you last smoked? > 10 years Alcohol Screen Question Answer Notes Did you have a drink containing alcohol in the p ast year? No Points 0 Interpretation Negative Section Notes: Nonsmoker; no sig alcohol Problems Problem Type SNOMED Code ICD Code Onset Dates Problem Status W/U Status Risk Notes Problem Abnormal feces (128372980) Heme + stool (R19.5) Active confirmed Problem Diverticulosis of colon (230522347) Diverticulosis of colon (K57.30) Active confirmed Plan Of Treatment Pending Test Test Name Order Date Pathology 08/28/2022 Future Test Test Name Order Date COLONOSCOPY 07/17/2022 Insurance Providers Payer Name Payer Address Payer Phone Subscriber Number Group Number Insured Name Patient Relationship to Insured Coverage Start Date Coverage End Date MEDICARE OF [place] [address] [place] [id number] [employer] Self - patient is the insured MEDICAID OF [facility] [address] [place] [place] [phone] [id number] [employer] Self - patient is the insured Medical (General) History Medical History History ICD Code Hypertension Denies UT,DM,CVA,Lung disease,renal dise ase Depression Hyperlipidemia Osteoporosis Surgical History Surgery Date(Month/Year) Right hip Eyes as child Left arm for a fracture Cataract scheduled for 07/29/2022
--- OUTSIDE RECORDS SUMMARY | 2025-03-28 15:37 | XMS_ITS | Encounter Summary ---
Author Organization [employer] Address [address] [facility] [address] [place] [address] Care Team Providers Care Collection Manager Name Role Phone Safia Horner MD Primary Care Provider Encounter Details Date Type Department Care Team (Late st Contact Info) Description 03/05/2025 Telephone [facility] MEDICINE [address] [place], [place] [phone] Safia Horner MD [address] [place], [place] [phone] Social History Tobacco Use Types Packs/Day Years Used Date Smoking Tobacco: Never Smokeless Tobacco: Never Alcohol Use Standard Drinks/Week Comments Never 0 (1 standard drink = 0.6 oz pur e alcohol) Depression Answer Date Recorded Patient Health Questionnaire-9 Score 1 06/21/2023 Housing Stability Answer Date Recorded What is your housing situation today? I have camillalinda little 01/16/[address] you li ve. Do you have problems with any of the following? None of the above 01/16/2025 Food Insecurity Answer Date Recorded Within the past 12 months, y ou worried that your food would run out before you got money to buy more: Never True 01/16/2025 Within the past 12 months,th e food you bought just didn't last and you didn't have enough money to get more: Never True 09/2025 Transportation Answer Date Recorded In the past 12 months, has l ack of transportation kept you from medical appts, meetings, work or from getting things needed for daily living? No 01/16/2025 Utilities Answer Date Recorded In the past 12 months, has t he electric, gas, oil or water company threatened to shut off services in your home? No 01/16/2025 Depression Answer Date Recorded Patient Health Questionnaire-2 Score 0 06/21/2023 Internet Access Answer Date Recorded Internet Access Q1 No 01/16/2025 Internet Access Q2 I do not want or need it 01/06 Comments Unknown Sex and Gender Information Value [...] Description 05/02/2025 10:30 AM EDT Clinical Support [facility] MEDICINE [address] [place] [address] documented as of this encounter Visit Diagnoses Not on filedocumented in this encounter Additional Health Concerns Assessment Noted Time PHQ-9 Depression Total Score: 1 06/21/20 23 10:59 AM EDT documented as of this encounter Care Teams Collection Manager Relationship Specialty Start Date End Date Safia Horner MD [address] [place] [address] PCP - General Family Medicine 06/30/22 documented as of this encounter
--- OUTSIDE RECORDS SUMMARY | 2025-03-28 15:37 | XMS_ITS | Clinical Summary ---
Author Organization [employer] Address [address] [facility] 7t [place] [address] Care Team Providers Care Dukey Rider Name Role Phone Safia Horner MD Primary Care Provider [phone] Allergies No known active allergies Medications Blood Pressure Monitoring (Omron 3 Series BP Monitor) device USE TO CHECK BLOOD PRESSURE EVERY DAY 2 Active alendronate (Fosamax) 70 MG tablet Take 1 tablet (70 mg) by mouth every 7 (seven) days. Take in the morning with a full glass of water, on an empty stomach, and do not take anything else by mouth or lie down for the next 30 min. 12 tablet 4 5 Active amLODIPine (Norvasc) 10 MG tablet Take 1 tablet (10 mg) by mouth Once per day. 90 tablet 3 5 Active atorvastatin (Lipitor) 10 MG tablet Take 1 tablet (10 mg) by mouth Once per day. 90 tablet 3 5 Active Calcium Carb-Cholecalci ferol 600-10 MG-MCG tablet Take 1 tablet by mouth 2 times daily. 180 tablet 3 5 Active mirtazapine (Remeron) 30 MG tabletIndicatio ns:Chronic depression Take 1 tablet (30 mg) by mouth at bedtime. 90 tablet 3 5 Active Saline [place] 0.65 % solution Administer 1 spray into affected nostril(s) every 2 (two) hours if needed (congestions). 108 mL 5 Active Active Problems Problem Noted Date Diagnosed Date Underweight 01/23/2025 Right hip pain 04/10/2024 Assessment & Plan (04/10/2024 2:36 PM EDT): Continue to use home remedies Walk as much as possible Protein-calorie malnutrition, unspecified severi ty 06/21/2023 Assessment & Plan (01/23/2025 10:39 AM EDT): Gaining weight slowly Assessment & Plan (06/21/2023 11:15 AM EDT): [facility] is delivering meals She is trying to eat more protein Diverticulosis of colon 12/14/2022 Hyperlipidemia 06/24/2022 Assessment & Plan (06/21/2023 11:16 AM EDT): Continue statin 10mg nighty Assessment & Plan (12/14/2022 9:51 AM EST): Continue Atorvastatin 10mg daily Check lipids Osteoporosis 03/28/2022 Assessment & Plan (01/23/2025 10:38 AM EDT): Continue Alendronate 70mg weekly Recheck DEXA 02/2027 Continue Vit D/Ca supplements Walk daily Non-smoker Prior hip fracture, R hip Assessment & Plan (06/21/2023 11:15 AM EDT): Continue Alendronate 70mg weekly Recheck DEXA 02/2024 Continue Vit D/Ca supplements Walk daily Non-smoker Prior hip fracture, R hip Assessment & Plan (12/14/2022 9:50 AM EST): Continue Alendronate 70mg weekly Recheck DEXA 02/2024 Continue Vit D/Ca supplements Walk daily Non-smoker Occult blood in stools 01/20/2022 Macrocytosis without anemia 11/29/2017 Assessment & Plan (12/14/2022 9:50 AM EST): Recheck CBC Chronic depression 09/15/2017 Assessment & Plan (04/10/2024 2:37 PM EDT): On Citalopram 10mg and Mirtazapine 30mg daily doing well PHQ2 score of 1 Assessment & Plan (12/14/2022 9:51 AM EST): On Citalopram 10mg and Mirtazapine 30mg daily, doing well PHQ2 score of 1 Essential hypertension 09/15/2017 Assessment & Plan (02/27/2025 11:17 AM EDT): Unclear how her BP cuff is working, will have patient come in to nurse visit with cuff and recheck Continue Amlodipine 10mg for now Follow up with the Nurse for blood pressure check in 2 weeks. Continue with a low sodium diet and regular exercise as tolerated. For BP < or = to 139/89 (or 129/79 for diabetic patients) continue current medication regimen and follow up with PCP in 8 weeks. For BP > or = to 140/90 (or 130/80 for diabetic patients) increase Start new medication Olmesartan 5 mg once a day Follow up with the Nurse for second blood pressure check in 4 weeks. During second Nurse visit: For BP < or = to 139/89 (or 129/79 for diabetic patients) continue current medication regimen and follow up with the PCP in 8 weeks. For uncontrolled BP, titrate Olmesartan to 10mg. Assessment & Plan (01/23/2025 10:38 AM EDT): Continue Amlodipine 10mg daily BMP normal Monitor daily at home, phone visit in 2-4 weeks Assessment & Plan (04/10/2024 2:37 PM EDT): Continue Amlodipine 10mg daily BMP normal Monitor daily at home Check again in 6 months Assessment & Plan (06/21/2023 11:15 AM EDT): Continue Amlodipine 10mg daily BMP normal Check again in 6 months Assessment & Plan (12/14/2022 9:50 AM EST): Continue Amlodipine 10mg daily BMP ordered today to check Cr and electrolytes Encounters Date Type Department Care Team Description 03/14/2025 10:30 AM EDT Clinical Support [address] [address] Anastasiia Clark RN Essential hypertension [I10] 03/14/2025 Travel 03/05/2025 Telephone [facility] [address] [place] [id number] Safia Horner MD 02/27/2025 11:00 AM EDT Telemedicine [address] [address] Safia Horner MD Essential hypertension (Primary Dx) 02/27/2025 Travel 01/23/2025 10:15 AM EDT Office Visit [address] [address] Safia Horner MD Essential hypertension (Primary Dx); Dietary counseling; Exercise counseling; Underweight; Protein-calorie malnutrition, unspecified severity (CMS/HCC); Chronic depression; Osteoporosis, unspecified osteoporosis type, unspecified pathological fracture presence 01/23/2025 Travel 01/16/2025 Patient Outreach [facility] [address] [place] [phone] Safia Horner MD Pre-visit Planning (SDOH screening negative and tobacco screening negative) from Last 3 Months Immunizations Immunization Administration Dates Next Due Influenza injectable quadriv alent IIV4 with preservative 09/15/2017,08/08/2017 Influenza injectable quadriv alent preservative free 10/05/2022,08/15/2015 Influenza, High Dose Seasona l, Preservative Free 09/26/2020,09/04/2019,08/23/2018 Influenza, Split (incl. rafi fied surface antigen) 09/25/2013 Pneumococcal Conjugate PCV 13 04/07/2019 Pneumococcal Polysaccharide PPSV23 10/05/2022, Tdap 08/23/2018,12/30/2017,07/15/2012 Zoster, Recombinant 12/04/2020 Zoster, Unspecified 09/26/2020 Zoster, live 12/30/2017 Social History Tobacco Use Types Packs/Day Years Used Date Smoking Tobacco: Never Smokeless Tobacco: Never Tobacco Cessation:Counseling Given: Not Answered Alcohol Use Standard Drinks/Week Comments Never 0 (1 standard drink = 0.6 oz pur e alcohol) Depression Answer Date Recorded Patient Health Questionnaire-9 Score 1 06/21/2023 Housing Stability Answer Date Recorded What is your housing situation today? I have camilla little 01/16/[address] you [...] Orientation Straight 09/07/2022 10 :32 AM EDT Last Filed Vital Signs Vital Sign Reading Time Taken Comments Blood Pressure 140/77 03/14/2025 11:09 AM EDT automatic machine Pulse 87 03/14/2025 10:58 AM EDT Temperature 36.4 ??C (97.5 ??F) 01/23/2025 1 0:01 AM EDT Respiratory Rate 16 03/14/2025 10:5 8 AM EDT Oxygen Saturation 94% 03/14/2025 10: 58 AM EDT Inhaled Oxygen Concentration - - Weight 43.4 kg (95 lb 9.6 oz) 01/23/2025 10:01 AM EDT Height 162.6 cm (5' 4 ) 01/23/2025 10:0 1 AM EDT Body Mass Index 16.41 01/23/2025 10:01 AM EDT Plan of Treatment Upcoming Encounters Date Type Department Care Team (Late st Contact Info) Description 05/02/2025 10:30 AM EDT Clinical Support [address] [address] Health Maintenance Due Date Last Done Comments CT Colonography 1955 FIT DNA/Cologuard 1955 FIT 1955 FOBT 1955 Sigmoidoscopy 1955 Alcohol/Substance Use Screening 1965 Zoster Vaccines (3 of 3) 01/29/2021 021, 09/26/2020, 12/30/2017 Mammogram 03/29/2024 03/29/2023, 03/09, 03/12/2022, Additional history exists Depression Screening 06/21/2024 06/21/2023, 06/21/20 23 COVID-19 Vaccine ( season) 2024 02/28/2021, 02/06/2021 Influenza Vaccine (#1) 2024 , 09/26/2020, 09/04/2019, Additional history exists SDOH Screening 01/16/2026 01/16/2025 Tobacco Screening 02/27/2026 02/27/2025 Colonoscopy 08/08/2026 Colorectal Cancer Screening 08/08/2026 Lipid Panel 01/13/2028 01/12/2023, 02/16/2022 RSV Patients and Patients Aged 60 years or older (1 - 1-dose 75+ series) 2028 DTaP/Tdap/Td Vaccines (4 - Td or Tdap) 08/23/2028 08/23/2018, 12/30/2017, 07/15/2012 Hepatitis C Screening Completed 02/16/2022 Pneumococcal Vaccine: 50+ Years Completed 10/05/2022, 04/07/2019, 12/01/2017 HIB Vaccines Aged Out No longer eligi ble based on patient's age to complete this topic HPV Vaccines Aged Out No longer eligi ble based on patient's age to complete this topic Hepatitis A Vaccines Aged Out No long er eligible based on patient's age to complete this topic Hepatitis B Vaccines Aged Out No long er eligible based on patient's age to complete this topic IPV Vaccines Aged Out No longer eligi ble based on patient's age to complete this topic Meningococcal B Vaccine Aged Out No l onger eligible based on patient's age to complete this topic Meningococcal Vaccine Aged Out No agnes cinthia eligible based on patient's age to complete this topic RSV under 20 months Aged Out No longe r eligible based on patient's age to complete this topic Rotavirus Vaccines Aged Out No longer eligible based on patient's age to complete this topic Procedures Procedure Name Priority Date/Time Associated Diagnosis Comments BI MAMMOGRAM SCREENING TOMOSYNTHESIS BILATERAL Routine 03/29/2023 9:33 AM EDT LIPID PANEL, STANDARD Routine 01/12/2023 9:27 AM EST Hyperlipidemia, unspecified hyperlipidemia type ZZZ HISTORICAL HEPATITIS C AB W/REFL TO HCV RNA, QN, PCR Routine 02/16/2022 1:52 PM EDT from Last 3 Months or Most Recently Relevant to Health Maintenance Results * BI Mammogram Screening Tomosynthesis Bilateral (03/29/2023 9:33 AM EDT) Anatomical Region Laterality Modality Breast Bilateral Mammography 03/29/2023 9:33 AM EDT Narrative 03/31/2023 7:33 AM EDT ? [facility] [place] ? [address] ?[place] [address] ? Mammography Report ? Signed ? Patient: Daiana Koo ?MR#: [id number] ?? [id number] ? : 1955 ?Acct:[id number] ? Age/Sex: 67 / F ?ADM Date: 05/22/23 ? Loc: HO.MAMMO ? Attending : Safia Horner MD ? Ordering Physician: Safia Horner ?Results: 1Negative ? Date of Service: 03/29/23 ?Follow Up: 1 Year From Orig ?? inal Mammogram ? Procedure(s): MM tomosynthesis screening BI ?? Accession Number(s): [id number] ? cc: Safia Horner ? EXAMINATION: ?? MM SCREENING DIGITAL BREAST TOMOSYNTHESIS, BILATERAL ? CLINICAL INFORMATION: ? Screening. Asymptomatic. ? The lifetime risk of breast cancer based on the Tyrer-Cuzick Model is ?? 3%. ? COMPARISON: ?? Mammography: 01/03/2018, 12/30/2017, 03/23/2013; left breast ultrasound ?? 01/03/2018. ? TECHNIQUE: ?? Digital breast tomosynthesis is performed in both the craniocaudal and ?? mediolateral oblique views along with computer-aided detection (CAD). ?? Synthesized 2D images are generated from the tomosynthesis. ??Additional ?? right MLO view is provided. ? FINDINGS: ?? There are scattered areas of fibroglandular density (ACR BI-RADS breast ?? composition Category b). ? There are no significant masses, abnormal calcifications, or other ?? abnormalities. ??Parenchymal pattern is similar to prior studies. There ?? is no developing density or architectural abnormality. The axilla and ?? skin contours are unremarkable. No significant changes. ? MM/MM tomosynthesis screening BI ?? IMPRESSION: ?? No mammographic evidence of malignancy. ? ASSESSMENT: ? BI-RADS 1: Negative ? RECOMMENDATION: ?? Routine annual mammography screening. ? This patient's information was entered into a reminder system with a ?? target due date for their next mammogram. ? Dictated By: ?John Ramirez MD ? Signed By: ?<Electronically signed by John Ramirez MD in OV> ?03/31/23728 ? DD/DT: 03/29/ 09 ? TD/TT: ? Dress Fitter: PADRON ? Procedure Note Donotuseinterpreter, Image - 05/06/2023 [facility] [address] [place], [place] [address] Mammography Report Signed Patient: Daiana Koo JMR#: [id number] : 3Acct:[id number] Age/Sex: 67 / FADM Date: 03/29/23 Loc: HO.MAMMO Attending Dr: Safia Horner MD Ordering Physician: Sid Hornerults: 1Negative Date of Service: 03/29/23Follow Up: 1 Year From Orig inal Mammogram Procedure(s): MM tomosynthesis screening BI Accession Number(s): [id number] cc: Safia Horner EXAMINATION: MM SCREENING DIGITAL BREAST TOMOSYNTHESIS, BILATERAL CLINICAL INFORMATION: Screening. Asymptomatic. The lifetime risk of breast cancer based on the Tyrer-Cuzick Model is 3%. COMPARISON: Mammography: 01/03/2018, 12/30/2017, 03/23/2013; left breast ultrasound 01/03/2018. TECHNIQUE: Digital breast tomosynthesis is performed in both the craniocaudal and mediolateral oblique views along with computer-aided detection (CAD). Synthesized 2D images are generated from the tomosynthesis. Additional right MLO view is provided. FINDINGS: There are scattered areas of fibroglandular density (ACR BI-RADS breast composition Category b). There are no significant masses, abnormal calcifications, or other abnormalities. Parenchymal pattern is similar to prior studies. There is no developing density or architectural abnormality. The axilla and skin contours are unremarkable. No significant changes. MM/MM tomosynthesis screening BI IMPRESSION: No mammographic evidence of malignancy. ASSESSMENT: BI-RADS 1: Negative RECOMMENDATION: Routine annual mammography screening. This patient's information was entered into a reminder system with a target due date for their next mammogram. Dictated By: John Ramirez MD Signed By: <Electronically signed by John Ramirez MD in OV> 03/31/23 0729 DD/ 0933 TD/TT: Dress Fitter: NEREIDA [facility] External Provider IMG BI PROCEDURES Final Result * (ABNORMAL) Lipid Panel, Standard (01/12/2023 9:27 AM EST) Cholesterol, Total 248(H) <200 mg/dL [email or web address] HDL Cholesterol 72 > OR = 50 mg/dL [email or web address] Triglycerides 101 <150 mg/dL [email or web address] LDL Cholesterol 155(H) mg/dL (calc) [email or web address] Comment: Reference range: <100 Desirable range <100 mg/dL for primary prevention; ?? <70 mg/dL for patients with CHD or diabetic patients with > or = 2 CHD risk factors. LDL-C is now calculated using the [place] calculation, which is a validated novel method providing better accuracy than the Friedewald equation in the estimation of LDL-C. Rich SS et al. JEANNIE. 2013;310(19): 3017-4081 (http://education.[employer]/faq/LFK884) Chol/HDLC Ratio 3.4 <5.0 (calc) [email or web address] Non-HDL Cholesterol 176(H) <130 mg/dL (calc) [email or web address] Comment: For patients with diabetes plus 1 major ASCVD risk factor, treating to a non-HDL-C goal of <100 mg/dL (LDL-C of <70 mg/dL) is considered a therapeutic option. Blood Venous blood specimen / Unknown 01/12/2023 9:27 AM EST 01/12/2023 9:28 AM EST Narrative [facility] - 01/12/2023 11:54 PM EST FASTING:YES FASTING: YES Safia Horner MD LAB BLOOD ORDERABLES Final Res ult [facility] [address] [facility] [place] [address] [email or web address] [address] [facility], ([address]) [place] [address] * HEPATITIS C AB W/REFL TO HCV RNA, QN, PCR (02/16/2022 1:52 PM EDT) HEPATITIS C ANTIBODY NON-REACT RADHA NON-REACT RADHA [facility] INDEX 0.02 <1.00 [facility] Comment: ?? HCV antibody was non-reactive. There is no laboratory ?? evidence of HCV infection. ?? In most cases, no further action is required. However, if recent HCV exposure is suspected, a test for HCV RNA (test code 14415) is suggested. ?? For additional information please refer to http://education.[employer]/faq/OSZ08t6 (This link is being provided for informational/ educational purposes only.) ?? 02/16/2022 1:52 PM EDT us Marcia Hogan NP HISTORICAL/NON ORDERABLE LABS F inal Result Performing Organization Address City/State/[facility] Co de Phone Number [facility] Anywhere [address] from Last 3 Months or Most Recently Relevant to Health Maintenance Insurance [facility] FDC OPTIONS (O D-SNP) JOSEPH MARTINEZ [id number] Care Teams Dukey Rider Relationship Specialty Start Date End Date Safia Horner MD [address] [place] [phone] PCP - General Family Medicine 06/30/22
--- OUTSIDE RECORDS SUMMARY | 2025-03-28 15:37 | XMS_ITS | Encounter Summary ---
Author Organization [employer] Address [address] [facility] [address] [place] [address] Care Team Providers Care Relay Telegrapher Name Role Phone Safia Horner MD Primary Care Provider [phone] Reason for Visit * Reason Comments Med Refill Encounter Details Date Type Department Care Team ([facility] st Contact Info) Description 01/05/2024 Refill [facility] [address] [place], [place] [phone] Safia Horner MD [address] [place], [place] [phone] Chronic depression Social History Tobacco Use Types Packs/Day Years Used Date Smoking Tobacco: Never Smokeless Tobacco: Never Alcohol Use Standard Drinks/Week Comments Never 0 (1 standard drink = 0.6 oz pur e alcohol) Depression Answer Date Recorded Patient Health Questionnaire-9 Score 1 06/21/2023 Housing Stability Answer Date Recorded What is your housing situation today? I have camillalinda little 08/25/[address] you li [...] Description 05/02/2025 10:30 AM EDT Clinical Support [facility] [address] [place] [address] documented as of this encounter Visit Diagnoses Diagnosis Chronic depression documented in this encounter Additional Health Concerns Assessment Noted Time PHQ-9 Depression Total Score: 1 06/21/20 23 10:59 AM EDT documented as of this encounter Care Teams Relay Telegrapher Relationship Specialty Start Date End Date Safia Horner MD [address] [place] [address] PCP - General Family Medicine 06/30/22 documented as of this encounter
== END 2025-03-28 15:34 | disposition home or self-care (01) ==
LOC: HO.MAMMO 15:33
PROVIDERS: PCP General Practice; Visit Provider General Practice
DX: Z12.31 Encounter for screening mammogram for malignant neoplasm of breast (principal)
CPT/HCPCS: 77063; 77067

== ENCOUNTER → 2025-03-28 15:45 | Outpatient (BNV) | payer OTHER, SELFPAY | PROVIDERS: PCP General Practice; Visit Provider Internal Medicine | DX: Z12.31 Encounter for screening mammogram for malignant neoplasm of breast (principal) | CPT/HCPCS: 77063; 77067 ==

== ENCOUNTER 2025-06-01 12:07 | Outpatient (REF) | payer OTHER, SELFPAY ==
--- NOTE | ~2025-06-01 | MM_ITS ---
EXAMINATION: MM DIAGNOSTIC DIGITAL BREAST TOMOSYNTHESIS, RIGHT CLINICAL INFORMATION: Callback from screening for right breast asymmetry in the retroareolar region of posterior depth on the MLO. COMPARISON: March 28, 2025 TECHNIQUE: Digital breast tomosynthesis is performed in full-field ML 90 degrees views along with computer-aided detection (CAD). Synthesized 2D images are generated from the tomosynthesis. Spot compression tomosynthesis images were also obtained. FINDINGS: BREAST COMPOSITION: There are scattered areas of fibroglandular density (ACR BI-RADS breast composition Category b). RIGHT BREAST: Previously suggested asymmetry in the retroareolar plane posterior depth presses out with spot compression, and most likely represented overlapping fibroglandular breast tissue. No suspicious masses. MM/MM tomosynthesis diagnostic RT IMPRESSION: RIGHT BREAST: Negative, no mammographic evidence of malignancy. Patient may return to routine screening mammogram. ASSESSMENT: BI-RADS 1 - Negative RECOMMENDATION: 1 year F/U Results were provided to the patient at time of visit by the technologist. This patient's information was entered into a reminder system with a target due date for their next mammogram. Electronically signed by: Oskar Schmitz MD 06/01/2025 01:00 PM EDT
--- OUTSIDE RECORDS SUMMARY | 2025-06-01 12:10 | XMS_ITS | Clinical Summary ---
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 90 tablet 3 5 Active Saline Van 0.65 % solution Administer 1 spray into [...] Encounters Date Type Department Care Team Description 05/02/2025 10:30 AM EDT Clinical Support [address] [address] Elina Gutierrez RN Essential hypertension [I10] 05/02/2025 Travel 03/28/2025 Orders Only [facility] [place] [address] Safia Horner MD 03/14/2025 10:30 AM EDT Clinical Support [facility] [place] [address] Anastasiia Clark RN Essential hypertension [I10] 03/14/2025 Travel 03/05/2025 Telephone [facility] [place] [address] Safia Horner MD from Last 3 Months Immunizations Immunization Administration [...] your housing situation today? I have camilla sing 01/16/[address] you li [...] Sign Reading Time Taken Comments Blood Pressure 130/76 05/02/2025 11:21 AM EDT Pulse 88 05/02/2025 11:21 AM EDT Temperature 36.4 C (97.5 F) 01/23/2025 10:01 AM EDT Respiratory Rate 18 05/02/2025 11:21 AM EDT Oxygen Saturation 94% 03/14/2025 10:58 AM EDT Inhaled Oxygen Concentration - - Weight 43.4 kg (95 lb 9.6 oz) 01/23/2025 10:01 A M EDT Height 162.6 cm (5' 4 ) 01/23/2025 10:01 AM EDT Body Mass Index 16.41 01/23/2025 10:01 AM EDT Plan of Treatment Health Maintenance Due Date Last Done Comments CT Colonography 1955 FIT DNA/Cologuard 1955 FIT 1955 FOBT 1955 Sigmoidoscopy 1955 Alcohol/Substance Use Screening 1965 Zoster Vaccines (3 of 3) 01/29/2021 021, 09/26/2020, 12/30/2017 Depression Screening 06/21/2024 06/21/2023, 06/21/20 23 COVID-19 Vaccine ( season) 2024 02/28/2021, 02/06/2021 Influenza Vaccine (#1) 2025 , 09/26/2020, 09/04/2019, Additional history exists SDOH Screening 01/16/2026 01/16/2025 Tobacco Screening 02/27/2026 02/27/2025 Mammogram 03/28/2026 03/28/2025, 03/09, 03/29/2023, Additional history exists Colonoscopy 08/08/2026 Colorectal Cancer Screening 08/08/2026 Lipid [...] Comments BI MAMMOGRAM SCREENING TOMOSYNTHESIS BILATERAL Routine 03/28/2025 3:40 PM EDT LIPID PANEL, STANDARD Routine 01/12/2023 9:27 AM EST Hyperlipidemia, unspecified hyperlipidemia type ZZZ HISTORICAL HEPATITIS C AB W/REFL TO HCV RNA, QN, PCR Routine 02/16/2022 1:52 PM EDT from Last 3 Months or Most Recently Relevant to Health Maintenance Results * BI Mammogram Screening Tomosynthesis Bilateral (03/28/2025 3:40 PM EDT) Anatomical Region Laterality Modality Breast Bilateral Mammography 03/28/2025 3:40 PM EDT Narrative 04/06/2025 4:34 PM EDT [facility] [address] [place], [place] [address] Mammography Report Signed Patient: Daiana Koo MR#: [id number] : 1955 Acct:[id number] Age/Sex: 69 / F ADM Date: 03/28/25 Loc: HO.MAMMO Attending Dr: Safia Horner MD Ordering Physician: Safia Horner Results: 0Incomple te: Needs Additional Imaging Evaluation Date of Service: 03/28/25 Follow Up: Additional Imagi ng Procedure(s): MM tomosynthesis screening BI Accession Number(s): [id number] cc: Safia Horner EXAMINATION: MM SCREENING DIGITAL BREAST TOMOSYNTHESIS, BILATERAL CLINICAL INFORMATION: Screening. Asymptomatic. COMPARISON: Mammography: Comparison is made with available priors TECHNIQUE: Digital breast mammography with tomosynthesis is performed in both the craniocaudal and mediolateral oblique views along with computer-aided detection (CAD). FINDINGS: There are scattered areas of fibroglandular density (ACR BI-RADS breast composition Category b). Right: Asymmetry retroareolar region posterior depth on MLO view this could represent overlapping skin. No suspicious calcifications or other abnormal findings. Left: There are no significant masses, abnormal calcifications, or other abnormalities. MM/MM tomosynthesis screening BI IMPRESSION: Additional imaging is recommended ASSESSMENT: BI-RADS BI-RADS 0 - Incomplete: Needs additional Imaging. RECOMMENDATION: 1. Additional views of the right breast. 2. Targeted ultrasound if warranted after review of the additional views. 3. Radiology department staff will contact the patient for additional imaging. Additional Imaging required This examination should not preclude the clinical evaluation of a suspicious palpable abnormality. This patient's information was entered into a reminder system with a target due date for their next mammogram. Electronically signed by: Suni Melendrez DO 04/06/2025 04:32 PM EDT RP Dictated By: Suni Melendrez DO Signed By: <Electronically signed by Suni Melendrez DO in OV> 04/06/25 1632 DD/ 1540 TD/TT: 03/28/25 1551 Lay Brother: Procedure Note Donotuseinterpreter, Image - 04/06/2025 [facility] [place] [address] Mammography Report Signed Patient: Daiana Koo JMR#: [id number] : 1955cct:[id number] Age/Sex: 69 / FADM Date: 03/28/25 Loc: HO.MAMMO Attending Dr: Safia Horner MD Ordering Physician: Sid Hornerults: 0Incomple te: Needs Additional Imaging Evaluation Date of Service: 03/28/25Follow Up: Additional Imagi ng Procedure(s): MM tomosynthesis screening BI Accession Number(s): [id number] cc: Safia Horner EXAMINATION: MM SCREENING DIGITAL BREAST TOMOSYNTHESIS, BILATERAL CLINICAL INFORMATION: Screening. Asymptomatic. COMPARISON: Mammography: Comparison is made with available priors TECHNIQUE: Digital breast mammography with tomosynthesis is performed in both the craniocaudal and mediolateral oblique views along with computer-aided detection (CAD). FINDINGS: There are scattered areas of fibroglandular density (ACR BI-RADS breast composition Category b). Right: Asymmetry retroareolar region posterior depth on MLO view this could represent overlapping skin. No suspicious calcifications or other abnormal findings. Left: There are no significant masses, abnormal calcifications, or other abnormalities. MM/MM tomosynthesis screening BI IMPRESSION: Additional imaging is recommended ASSESSMENT: BI-RADS BI-RADS 0 - Incomplete: Needs additional Imaging. RECOMMENDATION: 1. Additional views of the right breast. 2. Targeted ultrasound if warranted after review of the additional views. 3. Radiology department staff will contact the patient for additional imaging. Additional Imaging required This examination should not preclude the clinical evaluation of a suspicious palpable abnormality. This patient's information was entered into a reminder system with a target due date for their next mammogram. Electronically signed by: Suni Melendrez DO 04/06/2025 04:32 PM EDT Dictated By: Suni Melendrez DO Signed By: <Electronically signed by Suni Melendrez DO in OV> 04/06/25 1632 DD/ 1540 TD/TT: 03/28/25 1551 Lay Brother: Safia Horner MD IMG BI PROCEDURES Edited Resul t - Final * (ABNORMAL) Lipid Panel, Standard (01/12/2023 9:27 AM EST) Cholesterol, Total 248(H) <200 mg/dL [facility] HDL Cholesterol 72 > OR = 50 mg/dL [facility] Triglycerides 101 <150 mg/dL [facility] LDL Cholesterol 155(H) mg/dL (calc) [facility] Comment: Reference range: <100 Desirable range <100 mg/dL for primary prevention; <70 mg/dL for patients with CHD or diabetic patients with > or = 2 CHD risk factors. LDL-C is now calculated using the Rich-Sepulveda calculation, which is a validated novel method providing better accuracy than the Friedewald equation in the estimation of LDL-C. Rich SS et al. JEANNIE. 2013;310(19): 9754-1956 (http://education.[employer]/faq/EMR326) Chol/HDLC Ratio 3.4 <5.0 (calc) [facility] Non-HDL Cholesterol 176(H) <130 mg/dL (calc) [facility] Comment: For patients with diabetes plus 1 major ASCVD risk factor, treating to a non-HDL-C goal of <100 mg/dL (LDL-C of <70 mg/dL) is considered a therapeutic option. Blood Venous blood specimen / Unknown 01/12/2023 9:27 AM EST 01/12/2023 9:28 AM EST Narrative [facility] - 01/12/2023 11:54 PM EST FASTING:YES FASTING: YES us Safia Horner MD LAB BLOOD ORDERABLES Final Res ult [facility] [address] [facility] [facility] 3[address] [place] [address] [facility] [address] [facility], ([address]) [place] [address] * HEPATITIS C AB W/REFL TO HCV RNA, QN, PCR (02/16/2022 1:52 PM EDT) HEPATITIS C ANTIBODY NON-REACT RADHA NON-REACT RADHA [facility] INDEX 0.02 <1.00 [facility] Comment: HCV antibody was non-reactive. There is no laboratory evidence of HCV infection. In most cases, no further action is required. However, if recent HCV exposure is suspected, a test for HCV RNA (test code 86593) is suggested. For additional information please refer to http://education.[employer]/faq/NXJ36r8 (This link is being provided for informational/ educational purposes only.) 02/16/2022 1:52 PM EDT us Marcia Hogan NP HISTORICAL/NON ORDERABLE LABS F inal Result [facility] [address] from Last 3 Months or Most Recently Relevant to Health Maintenance Insurance [facility] [employer] OPT[employer] (HMO D-SNP) JOSEPH [place]ARTINEZ [id number] Care Teams Industrial Commercial Groundskeeper Relationship Specialty Start Date End Date Safia Horner MD [address] [place] [id number] PCP - General Family Medicine 06/30/22
--- OUTSIDE RECORDS SUMMARY | 2025-06-01 12:10 | XMS_ITS | Patient Health Record ---
Author Organization [facility] Address [address] [place] [address] Care Team Providers Care Shingler Name Role Phone Nate Virgen Jessica Primary Care Provider Betito Gonzalez Unavailable [phone] Allergies No Known Allergies Reason For Referral [...] W/U Status Risk Notes Problem Abnormal feces (501057560) Heme + stool (R19.5) Active confirmed Problem Diverticulosis of colon (896597208) Diverticulosis of colon (K57.30) Active confirmed Plan Of Treatment Pending Test Test Name Order Date Pathology 08/28/2022 Future Test Test Name Order Date COLONOSCOPY 07/17/2022 Insurance Providers Payer Name Payer Address Payer Phone Subscriber Number Group Number Insured Name Patient Relationship to Insured Coverage Start Date Coverage End Date MEDICARE OF [place] [address] [place] [id number] [employer] Self - patient is the insured MEDICAID OF [facility] [address] [place] [phone] [id number] [employer] Self - patient is the insured Medical (General) History Medical History History ICD Code Hypertension Denies [place],DM,CVA,Lung disease,renal dise ase Depression Hyperlipidemia Osteoporosis Surgical History Surgery Date(Month/Year) Right hip Eyes as child Left arm for a fracture Cataract scheduled for 07/29/2022
== END 2025-06-01 12:08 | disposition home or self-care (01) ==
LOC: HO.MAMMO 12:07
PROVIDERS: PCP General Practice; Visit Provider General Practice
DX: N64.89 Other specified disorders of breast (principal)
CPT/HCPCS: 77061; 77065

== ENCOUNTER → 2025-06-01 12:30 | Outpatient (BNV) | payer OTHER, SELFPAY | PROVIDERS: PCP General Practice; Visit Provider Radiology Body Imaging | DX: R92.8 Other abnormal and inconclusive findings on diagnostic imaging of breast (principal); R92.321 Mammographic fibroglandular density, right breast | CPT/HCPCS: 77065; G0279 ==